=== PATIENT | male | born 1965 | race African-American/Black ===

== ENCOUNTER 2018-05-08 10:13 | Outpatient (CLI) | payer BC, OTHER ==
--- NOTE | 2018-05-08 13:42 | RAD ---
PA AND LATERAL CHEST: HISTORY: Dyspnea. FINDINGS: The heart size is normal. The aorta is tortuous. the lungs are well expanded without lobar consolid ation, pneumothoraces, jayashree pulmonary edema, or pleural effusions. No acute osseous abnormalities a re seen. IMPRESSION: No radiographic evidence of acute cardiopulmonary process. POS: [facility]
== END 2018-05-08 10:14 | disposition home or self-care (01) ==
LOC: RAD 10:13
PROVIDERS: ATTEND Internal Medicine Critical Care Medicine
DX: R06.00 Dyspnea, unspecified (principal)
CPT/HCPCS: 71046

== ENCOUNTER 2023-07-29 13:44 | Outpatient (CLI) | payer BC | END 2023-07-29 13:45 | disposition home or self-care (01) | LOC: ULT 13:44 | PROVIDERS: ATTEND Family Medicine | DX: E01.0 Iodine-deficiency related diffuse (endemic) goiter (principal) | CPT/HCPCS: 76536 ==